=== PATIENT | female | born 1975 | race Asian ===

== ENCOUNTER 2018-06-06 08:37 | Outpatient (CLI) | payer BC | END 2018-06-06 20:48 | disposition home or self-care (01) | LOC: MRI 08:37 | DX: M25.552 Pain in left hip (principal); Z12.31 Encounter for screening mammogram for malignant neoplasm of breast ==

== ENCOUNTER 2018-06-18 09:18 | Outpatient (CLI) | payer BC | END 2018-06-18 19:02 | disposition home or self-care (01) | LOC: US 09:18 | DX: D25.9 Leiomyoma of uterus, unspecified (principal) ==